=== PATIENT | female | born 1975 | race Hispanic/Latino ===

== ENCOUNTER 2024-01-26 09:22 | Emergency (ER) | payer BC, SELFPAY ==
[2024-01-26] MEDS ORDERED: HYDROcodone/Acetaminophen 5/325 mg Tablet ONE (10:18)
[2024-01-26] MEDS ORDERED: Ondansetron ODT 4 MG TAB ONE (10:18)
== END 2024-01-26 11:06 | disposition home or self-care (01) ==
LOC: ERS 09:22
DX: N94.6 Dysmenorrhea, unspecified (principal); R10.9 Unspecified abdominal pain; I10 Essential (primary) hypertension
CPT/HCPCS: 99283; Q0162